=== PATIENT | female | born 1975 | race Caucasian/White ===

== ENCOUNTER 2019-06-19 23:47 | Emergency (ER) | payer MEDICAID ==
[~2019-06-19] VITALS: Ht 172.7 cm; Wt 90.7 kg
[~2019-06-19 23:47] MED LIST: BIRTH CONTROL PILLS PO; OMEP20CA4 PO; RANI-673 PO; TRAM50TA2 PO
[2019-06-20 00:15] VITALS: BP_SYST 114
[2019-06-20] MEDS ORDERED: FAMOTIDINE 20 MG TABLET PO ONE (00:45)
[2019-06-20] MEDS ORDERED: DIPHENHYDRAMINE INJ 50 MG/ML VIAL IM ONE (00:45)
--- NOTE | 2019-06-20 00:45 | NUR ---
Pt placed to ER Chair 1. Pt c/o redness to face and chest, itching and burning sensation since 2100 last night. 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 Respirations even and non-labored, BBS clear.
--- NOTE | 2019-06-20 00:55 | NUR ---
Dr. Toribio assessing pt.
--- NOTE | 2019-06-20 01:00 | NUR ---
Pt stated that she applied lotion and washed face with water, but no relief in symptoms.
--- NOTE | 2019-06-20 01:30 | NUR ---
No needs verbalized. Airway patent, respirations even and non-labored.
[2019-06-20] MEDS ORDERED: MORPHINE 2 MG/ML INJ. SYRINGE IM ONE (01:45)
--- NOTE | 2019-06-20 01:52 | NUR ---
Pt moved to ER bed 06 in stable condition.
--- NOTE | 2019-06-20 02:13 | NUR ---
Pt states that she wants to go home. "Sitting here isn't making it any better." Dr. Toribio at bedside speaking with pt.
[2019-06-20 02:34] VITALS: BP_SYST 106
--- NOTE | 2019-06-20 02:34 | NUR ---
Patient given written and verbal discharge instructions and verbalizes understanding. ER MD discussed with patient the results and treatment provided. Patient in stable condition. ID arm band removed. Rx of [place] given. Patient educated on pain management and to follow up with PMD. Pain Scale 2/10. Opportunity for questions provided and answered. Medication side effect fact sheet provided.
== END 2019-06-20 02:34 | disposition home or self-care (01) ==
LOC: SED 23:47
DX: T20.40XA Corrosion of unspecified degree of head, face, and neck, unspecified site, initial encounter (principal); X58.XXXA Exposure to other specified factors, initial encounter; Y93.89 Activity, other specified; Y92.89 Other specified places as the place of occurrence of the external cause; Y99.8 Other external cause status
CPT/HCPCS: 96372; 99284; J1200; J2270

== ENCOUNTER 2019-06-22 21:00 | Emergency (ER) | payer MEDICAID ==
[~2019-06-22] VITALS: Ht 162.6 cm; Wt 81.6 kg
[2019-06-22 21:05] VITALS: BP_SYST 110
--- NOTE | 2019-06-22 21:05 | NUR ---
Patient triaged and placed in waiting room. VSS and patient appears in no acute distress at this time. Accompanied by FAM MEMBER, awaiting available bed, and MD notified of need for MSE.
--- NOTE | 2019-06-22 23:25 | NUR ---
call pt name in the wr.no answer.
--- NOTE | 2019-06-22 23:30 | NUR ---
call pt name in the wr.no answer.
--- NOTE | 2019-06-22 23:35 | NUR ---
call pt name in the wr.no answer.
--- NOTE | 2019-06-23 00:17 | NUR ---
Note claudia in [facility] - 06/23/19 at 0020 by SDEDPR Patient to bed 7 to [facility] for evaluation. Side rails up.
== END 2019-06-22 21:05 | disposition left against medical advice (07) ==
LOC: SED 21:00
DX: R06.00 Dyspnea, unspecified (principal); Z53.21 Procedure and treatment not carried out due to patient leaving prior to being seen by health care provider
CPT/HCPCS: 93005